=== PATIENT | female | born 1995 | race Hispanic/Latino ===

== ENCOUNTER 2021-06-18 09:38 | Emergency (ER) | payer OTHER ==
[~2021-06-18] VITALS: Ht 162.6 cm; Wt 159.1 kg
[2021-06-18] MEDS ORDERED: NEXP1IMP SC (10:00)
--- NOTE | 2021-06-18 10:18 | REP ---
INDICATION: CHEST PAIN. COMPARISON: None. TECHNIQUE: Single portable AP view of the chest was performed. FINDINGS: There is no acute infiltrate or pulmonary edema. Lungs are clear. The heart is not significantly enlarged. The mediastinal silhouette is unremarkable. The visualized osseous structures are intact. IMPRESSION: No acute pulmonary disease. <Electronically signed by Ricardo Quick > 06/18/21 [id number]
[2021-06-18 10:39] LABS: BASO # 0.1 10^3/uL (0.0-0.2); BASO % 0.4 % (0.0-1.0); EOS # 0.1 10^3/uL (0.0-0.5); EOS % 0.7 % (0.0-3.0); HEMATOCRIT 38.3 % (36.0-47.0); HEMOGLOBIN 12.1 g/dl (12.0-15.5); LYMPH # 2.1 10^3/uL (1.5-5.0); LYMPH % 15.3 % (24.0-44.0); MEAN CORPUSCULAR HEMOGLOBIN 29.4 pg (27.0-33.0); MEAN CORPUSCULAR HGB CONC 31.6 g/dl (32.0-36.5); MEAN CORPUSCULAR VOLUME 93.2 fl (80.0-96.0); MONO # 0.5 10^3/uL (0.0-0.8); MONO % 3.3 % (2.0-8.0); NEUTROPHILS # 10.9 10^3/uL (1.5-8.5); NEUTROPHILS % 79.7 % (36.0-66.0); PLATELET COUNT, AUTOMATED 272 10^3/uL (150-450); RED BLOOD COUNT 4.11 10^6/uL (4.00-5.40); WHITE BLOOD COUNT 13.7 10^3/uL (4.0-10.0)
[2021-06-18 11:05] LABS: HCG, SERUM QUALITATIVE NEGATIVE (NEGATIVE)
[2021-06-18 11:13] LABS: BLOOD UREA NITROGEN 9 MG/DL (7-18); CALCIUM LEVEL 8.7 MG/DL (8.5-10.1); CARBON DIOXIDE LEVEL 26 MEQ/L (21-32); CHLORIDE LEVEL 109 MEQ/L (98-107); CPK CREATINE PHOSPHOKINASE 85 U/L (26-192); CREATININE FOR GFR 0.66 MG/DL (0.55-1.30); GLOMERULAR FILTRATION RATE > 60.0 (>60); GLUCOSE, FASTING 161 MG/DL (70-100); MB/CK RELATIVE INDEX 1.18 (< OR =4); POTASSIUM SERUM 4.3 MEQ/L (3.5-5.1); SODIUM LEVEL 141 MEQ/L (136-145); TROPONIN I < 0.02 NG/ML (< 0.10)
[2021-06-18] MEDS ORDERED: ISOVUE-370 76% 100ML VIAL As Ordered ONE (11:22)
--- NOTE | 2021-06-18 11:40 | REP ---
INDICATION: r/o PE COMPARISON: None. TECHNIQUE: Axial contrast enhanced images from the thoracic inlet to the upper abdomen using pulmonary embolus technique with multiplanar re-formations. 100 ml Isovue 370 intravenous contrast material administered without complication. This CT examination was performed using the following dose reduction techniques: Automated exposure control, adjustment of mA and/or kv according to the patient's size, and use of iterative reconstruction technique. FINDINGS: Evaluation is limited due to technical factors, respiratory motion and body habitus. No obvious pulmonary embolus identified within the main and 1st order pulmonary arteries. Further evaluation for more distal emboli is nondiagnostic. Thoracic aorta is normal and without aneurysm or dissection. Heart and pericardium appear normal. The bilateral lung gtz are well aerated and clear without consolidation pleural effusion or pneumothorax. Tracheobronchial tree is patent. No obvious nodule or mass lesion is identified. No adenopathy noted. Surrounding musculoskeletal structures intact IMPRESSION: Limited examination. No obvious central pulmonary emboli identified. No acute mediastinal or pleuroparenchymal process appreciated. <Electronically signed by Cesario Pastrana > 06/18/21 [id number]
[2021-06-18] MEDS ORDERED: METOPROLOL TART 25 MG TABLET PO ONE (11:50)
[2021-06-18 12:13] VITALS: BP 141/67
[2021-06-18 14:12] LABS: CK-MB VALUE MASS < 1.0 NG/ML (<3.6); CPK CREATINE PHOSPHOKINASE 84 U/L (26-192); MB/CK RELATIVE INDEX 1.19 (< OR =4); TROPONIN I < 0.02 NG/ML (< 0.10)
[2021-06-18] MEDS ORDERED: VALS1TAB66 PO (14:34)
[2021-06-18 14:55] VITALS: BP 141/67
--- NOTE | 2021-06-19 07:28 | ECGEPIP ---
[facility] - ED Test Date: 2021-06-18 Pat Name: DARIO PALMER Department: Room: - Gender: Female Cytotechnologist/Histotechnologist: ANNIA : 1995 Requested By: Bk Madden Order Number: [id number] Reading MD: Bk Gordon Measurements Intervals [place] Rate: 134 P: 51 NH: 132 QRS: 30 QRSD: 76 T: 29 QT: 306 QTc: 456 Interpretive Statements Sinus tachycardia NO PRIORS FOR COMPARISON Electronically Signed on 06-19-2021 7:28:40 EDT by Bk Gordon
== END 2021-06-18 15:13 | disposition home or self-care (01) ==
LOC: M ED 09:38 → EDBD 09:38 → M ED 15:13
DX: I10 Essential (primary) hypertension (principal); R07.89 Other chest pain; R00.0 Tachycardia, unspecified; E66.9 Obesity, unspecified
CPT/HCPCS: 36415; 71045; 71275; 80048; 82550; 82553; 84443; 84484; 84703; 85025; 93005; 93041; 94760; 99285; Q9967

== ENCOUNTER 2021-08-12 21:26 | Emergency (ER) | payer OTHER ==
[~2021-08-12] VITALS: Ht 162.6 cm; Wt 161.4 kg
[~2021-08-12 21:26] MED LIST: NEXP1IMP SC; VALS1TAB66 PO
[2021-08-12] MEDS ORDERED: CHLO25TA PO (21:34)
--- OUTSIDE RECORDS SUMMARY | 2021-08-12 21:36 | CCD ---
Author Author [facility] Organization [facility] Address Unknown Phone Unavailable Care Team Providers Care Logistics Operations Manager Name Role Phone Elsa SOTO Unavailable Unavailable [place], Rasheed EDGAR Unavailable Unavailable Edgar Lovelace Unavailable [phone] [place] Edgar Unavailable [phone] [place] Edgar Unavailable [phone] MIR, Rasheed SIENA Unavailable Unavailable EMMA, V JONO Unavailable Unavailable EMMA, V JONO Unavailable Unavailable EMMA, V JONO Unavailable Unavailable EMMA, V JONO Unavailable Unavailable EMMA, V JONO Unavailable Unavailable EMMA, V JONO Unavailable Unavailable EMMA, V JONO Unavailable Unavailable EMMA, V JONO Unavailable Unavailable EMMA, V JONO Unavailable Unavailable EMMA, V JONO Unavailable Unavailable EMMA, V JONO Unavailable Unavailable EMMA, V JONO Unavailable Unavailable EMMA, V JONO Unavailable Unavailable EMMA, V JONO Unavailable Unavailable EMMA, V JONO Unavailable Unavailable EMMA, V JONO Unavailable Unavailable EMMA, V JONO Unavailable Unavailable EMMA, V JONO Unavailable Unavailable EMMA, V JONO Unavailable Unavailable EMMA, V JONO Unavailable Unavailable EMMA, V JONO Unavailable Unavailable EMMA, V JONO Unavailable Unavailable EMMA, V JONO Unavailable Unavailable EMMA, V JONO Unavailable Unavailable EMMA, V JONO Unavailable Unavailable EMMA, V JONO Unavailable Unavailable EMMA, V JONO Unavailable Unavailable EMMA, V JONO Unavailable Unavailable EMMA, V JONO Unavailable Unavailable EMMA, V JONO Unavailable Unavailable Rabach, A Siena Unavailable Rabach, A Siena Unavailable Rabach, A Siena Unavailable Rabach, A Siena Unavailable Rabach, A Siena Unavailable Rabach, A Siena Unavailable Rabach, A Siena Unavailable Rabach, A Siena Unavailable Rabach, A Siena Unavailable Rabach, A Siena Unavailable Rabach, A Siena Unavailable Rabach, A Siena Unavailable Rabach, A Siena Unavailable Dc, M Christopher PA-C Unavailable Unavailable Dc, M Christopher PA-C Unavailable Unavailable Dc, M Christopher PA-C Unavailable Unavailable Dc, M Christopher PA-C Unavailable Unavailable Dc, M Christopher PA-C Unavailable Unavailable Dc, M Christopher PA-C Unavailable Unavailable Dc, M Christopher PA-C Unavailable Unavailable Dc, M Christopher PA-C Unavailable Unavailable Dc, M Christopher PA-C Unavailable Unavailable Dc, M Christopher PA-C Unavailable Unavailable Dc, M Christopher PA-C Unavailable Unavailable Dc, M Christopher PA-C Unavailable Unavailable Dc, M Christopher PA-C Unavailable Unavailable Dc, M Christopher PA-C Unavailable Unavailable Dc, M Christopher PA-C Unavailable Unavailable Dc, M Christopher PA-C Unavailable Unavailable Dc, M Christopher PA-C Unavailable Unavailable Dc, M Christopher PA-C Unavailable Unavailable Dc, M Christopher PA-C Unavailable Unavailable Dc, M Christopher PA-C Unavailable Unavailable Dc, M Christopher PA-C Unavailable Unavailable Dc, M Christopher PA-C Unavailable Unavailable Dc, M Christopher PA-C Unavailable Unavailable Dc, M Christopher PA-C Unavailable Unavailable Dc, M Christopher PA-C Unavailable Unavailable Dc, M Christopher PA-C Unavailable Unavailable Re-disclosure Warning The records that you are about to access may contain information from federally-assisted alcohol or drug abuse programs. If such information is present, then the following federally mandated warning applies: This information has been disclosed to you from records protected by federal confidentiality rules (42 CFR part 2). The federal rules prohibit you from making any further disclosure of this information unless further disclosure is expressly permitted by the written consent of the person to whom it pertains or as otherwise permitted by 42 CFR part 2. A general authorization for the release of medical or other information is NOT sufficient for this purpose. The Federal rules restrict any use of the information to criminally investigate or prosecute any alcohol or drug abuse patient.The records that you are about to access may contain highly sensitive health information, the redisclosure of which is protected by Article 27-F of the [facility] Public Health law. If you continue you may have access to information: Regarding HIV / AIDS; Provided by facilities licensed or operated by the [facility] Office of Mental Health; or Provided by the [facility] Office for People With Developmental Disabilities. If such information is present, then the following [facility] mandated warning applies: This information has been disclosed to you from confidential records which are protected by state law. State law prohibits you from making any further disclosure of this information without the specific written consent of the person to whom it pertains, or as otherwise permitted by law. Any unauthorized further disclosure in violation of state law may result in a fine or longterm sentence or both. A general authorization for the release of medical or other information is NOT sufficient authorization for further disc losure. Encounters Encounter Providers Location Date Indications Data Source(s ) Outpatient Attender: Edgar Scanlonender: EDGAR LOVELACE 09/01/2021 12:00:[address] [facility] Outpatient Attender: JONO CARTER 09/01/2021 12:00:00 AM [facility] Outpatient 09/01/2021 12:00:[address] [facility] Outpatient Attender: Constantin Dc PA-C 08/12/2021 06:06:55 PM EST - 08/12/2021 09:17:32 PM EST [facility] Outpatient Attender: Edgar Jones brandy: EDGAR Paul: KRYSTINA SOTO [id number] 07/17/2021 12:00:00 AM [facility] Outpatient Attender: Siena Richardender: SIENA HESTER 6 [id number] 07/17/2021 12:00:[address] [facility] Outpatient Attender: Siena HesterAttender: SIENA HESTER 06/17/2021 12:00:00 AM [facility] Outpatient Attender: EDGAR LOVELACEAttender: Edgar Lovelace 06/17/2021 12:00:00 AM [facility] Outpatient Attender: KRYSTINA SOTO [id number] 06/13/2021 12:00:00 AM [facility] Outpatient 06/10/2021 12:00:00 AM [facility] Outpatient 05/23/2021 12:00:00 AM [facility] Outpatient 05/20/2021 12:00:00 AM [facility] Outpatient 03/11/2021 12:00:00 AM [facility] Medications No Information Insurance Providers Payer name Policy type / Coverage type Policy ID Covered alliance party ID Covered alliance party's relationship to christina Policy Christina Plan Information U [id number] Spouse [id number] / [id number] [place] [id number] [facility] [id number] [facility] [id number] Problems, Conditions, and Diagnoses No Information Surgeries/Procedures No Information Results ID Date Data Source [id number] 07/18/2021 09:13:50 AM [facility] Name Value Range Interpretation Code Description Data Patsy rce(s) Supporting Document(s) Progress Note [facility] WYPVLf6oXsRAAxDc48/XIIqdWNSbh0VoKXpwEHb0RNyuIRJsS9OfKVG0iI9eAZD7FYpEZtHtVwMdCPUj [facility] [file] ICAgICAgICAgICAgICAgICAgICAgICAgICAgICAgIC IzTHNzEMFdLISfJYWtYEEbINXsSUHfVABvBUNmCTIaYZLhOXPuLIMbITQjQL4VGDEtTOOuAYDmTWTdRQ AgICAgICAgICAgICAgICAgICAgICAgICAgICAgICAgICAgICAgICAgICAgICAgICAgICAgICAgICAgIC RxSQBfWOYfTYHsSXSbTQIvZTKeFUNqMYXnTZ0WVHFe ICAgICAgICAgICAgICAgICAgICAgICAgICAgICAgICAgICAgICAgICAgICAgICAgICAgICAgICAgICAg TPJuQQDnBNJxKYKyPUXcSYLgIQHcWPUyDILzEJVlOREdKESmDW8BAWFmZNGaYPSoVLYnVLBvIHZwDFXe ICAgICAgICAgICAgICAgICAgICAgICAgICAgICAgIC PhORHyXHYlADXfSTMqYNKwSMUiNCEkPVXqLFVkREHtAHQtDDMbKKIfFNKcNQCbHC5JIGDaHZDxRPUkZJ AgICAgICAgICAgICAgICAgICAgICAgICAgICAgICAgICAgICAgICAgICAgICAgICAgICAgICAgICAgIC SdRLRePWUrWAPbUSSeWEKcLAJeNKPvHLAyHEHzPA7G ICAgICAgICAgICAgICAgICAgICAgICAgICAgICAgICAgICAgICAgICAgICAgICAgICAgICAgICAgICAg UVWnEZDqYNNwLUFyMAUfQZWoYSSrPTMaGXUhMLYzGYQoSEOcYTHgAJ2ICSJmLPMsARBqDPAcANZsBAQb ICAgICAgICAgICAgICAgICAgICAgICAgICAgICAgIC NwHTYvNENsECMqJOBlZMMhNPJgBWQxHYNoQXBgKSIiZQLdXPZjCTFxQDYmSUOfCOXgZQ3GVVNpMVIrMF AgICAgICAgICAgICAgICAgICAgICAgICAgICAgICAgICAgICAgICAgICAgICAgICAgICAgICAgICAgIC AgICAgICAgICAgICAgICAgICAgICAgICAgICAgICAg QI8ZBTAsEXLnFNZqDYVvWMPsRSCgHPKbPLReNYDmHWEmRMQjFDKjRGHvPXTgUBCfUTFsJCBgEHRaGBQk NKNlVYQjCFPwQHYeQLAdODXiHEClNNYuYOFkACNwNJToQPQkFWBnIUSpHW0XGIOwWOTkXNYyTGToBOIl ICAgICAgICAgICAgICAgICAgICAgICAgICAgICAgIC DjZKMtLLAmOQHsFPXaYOXmDDHcNQEoCLGgMHMdMJDjSGWqLHHcIOGsJICuNNXcWLMwHVDaMK9WHT29eX Rjq0D0VGUrNE6jivu/Ju6ANEiruxFjhCFpDQ5DHuAvBV3ldm8ZTfOlFO7vkv7NJJpUTtTrL3H3mHQpEX UxNHSWDxXpF60oVQwjZd14LNleDVCzGkNmRDz9Ky9M SwQvE5utSKOaFtI3BGPxDkC1GUQeYfN3OWWbZpSeFNLlCRSgBE4OMREpK074nnGrWF7GDr0LIfYwJR0v sq6USjktZWEtRxiTXwd5AJgyGN8BuIJibUKjPHRiXEZDVvUqI6hde6ZaXlnwGMICSEjuII8Ox6BjsAEo DQo+Dw1JOG7ve9EkUJsmTIYeQR4tpj7SVTwWIxPlY9 KllMciFXNxl7mxUUKlQW9ugYTxJBS6AMYhrlQhUZYEBPhusrJsqmqdJyRuZDSAVfCjyRLzOU5tVD5qFA RyDDAzWpUgEMUXVK5VJXYeHFVenMOfNNDoSWMAFW9QGXpfAYP2YYMazeGbbRZdZMmcJO0ORUXfoiSzUh ggMCBSDQo+Oe3TPX2uk5NxICriGGDnYH6bha2GPAxB GlVxB2M2bSIoW9E0RAdqJs5CCBTyKNHbQpJsYNWBDBizBR1QCK9tnrP7MV5SgWTvFDYoRSUjcJNtHAv3 A56hjPKvONsyLA4LQWZ+Susan+Pd3YZDYbZJAcOBEoMcKjKBZFTtHuW7UwT9DXu4RtF7TtZI48bSgyxgDg UBtgGM3WSH4oCBSwVKAFAM0YgAWjgW8wvlVwJMKiJB NWYxCkC19hgJZsABXrAWF6FGWgBx4IDIXsD3LypuLidZmwecTfCLCuFUEPVO6PBRplxhWudLTfqZsvBP 24oQaqLM1WJx0MSlKeFY5wmq8NpTFqVo3MKLPsBA8DBCMkMAFsQGRyYFL4AYTfGeQfFQblHCBuEUNvNR K6LPRkZBIeJI2XIvNySBYkJrs2CqTpTZEmYCXlhf8Z RXSdMVUnOXP1NEMrCVFjDRUpGNwcYLXiKTEoAWI1WOZaUMKfVF8EXoPwJYRtRGJ3FeubGIBqDTGsro2I KNWhIFKlLPU5JpPlBZVgUQZzOJcxFZUdUTX8GPktKXMsBDVlMY7IGrMcLIAdQFzsXQFeMPHxEXZooi9Z ZVQqHSYgZFYmCEKfKKHyICPcYVtdIXInGUWdAOD4AO SsSYMsBL6WHyYhSLPnGWS0JIQeLFZmVHMrsx9DIONjXBHqMrG7VkWdQQBaMJBnQXiuQRKpFIA1HOC8PQ XfNEZiKD9MKfMrQJTrHFWjPHLkLBFrIFYuvb6CACHeODPaFKN7VfGlZOWsJWHcGDfzPVToDXQ7MxA0IV GaEUAoTT9CSaWzBRXuPQD9UVbhDHVvEUWbuw4YPLSr PQSjGNojOSDvSBXoGRTeASiaOCUeWFW9NCP3JUDzORStPR9IJcNkQUQmWiu0VLMrCWLvQOTxsc3FGTEg GSXmFqG0ELAtQTHaVZHqCPheCVUpSNF4NVJ3EJBcPZXvDS7WJpJzRCKgPswjDRMrMPKiRNHacg6HCXKu VJJkRJJxDwDcAUHvPWUwQKauJJMeDFW3JhPaSYIoET OjPS2RCsWvARYnFnvoUHlgNVHsJJYmda1IAGGdZAMrAFtpFPLdOTHwJAWhMMyyMHPrCKWdSvghERMnRS KyEJ0EYxGxBHEpUiHeLCVjLGJwIYIsdq1BNIWaUJZpFNC8YMFnCCWfEQIjJOh0qkKlrKPuEFj9SK1LP4 TcxrNnSqDRBa3Yn540LAXbNLVcQw3KK1ckQv1lDOWe KPKQNr1IRUn2Lvy8Y3U5KKLmXQpaPQr1EQU8YhE3DwO0BWC5ADMbPVK+FTygBRNzUUsoDGO8NSMfKKQ2 DGCqPbLhAkFzDxI9G3GwJf8tGWIYWz3+QIbeyQPooRqzPNKZTjPjSbNeDPfyTCWUZl4U ID Date Data Source [id number] 07/17/2021 03:56:47 PM [facility] Name Value Range Interpretation Code Description Data Patsy rce(s) Supporting Document(s) Progress Note [facility] PZQIDj2iEmYVSfBn61/RCTcqWNLro0HoZKzyOBd6IEdiAYShZ0JpLBU8aG0oUTO3QIrZPtSfXlXfGJRg lbm [file] JeylY76iKdzhvnUiyp0gRS3MAeyrF8UCqsHoqPYn+GPzd3U8QTtylltdKYAgn8fqbdh9otQEhkWA+athletics teacher [file] ID Date Data Source [id number] 06/13/2021 04:14:39 PM EDT [facility] Name Value Range Interpretation Code Description Data Patsy rce(s) Supporting Document(s) Progress Note [facility] HLFZSl1gWbRIYcUt24/JKJsnSWFnl4BfMKmrOMi1ZDthECWmQ3WqBKO1lK4cYXV2CLaHHwNaUbFbODV3 lbm [file] WjFN6ICDm= Procedure Social History No Information
[2021-08-13] MEDS ORDERED: NS 1,000 ML IV ONE (03:20)
[2021-08-13] MEDS ORDERED: KETOROLAC 30 MG/ML 1ML VIAL IV ONE (03:20)
[2021-08-13 03:59] LABS: BASO % 0.2 % (0.0-1.0); EOS # 0.1 10^3/uL (0.0-0.5); EOS % 0.5 % (0.0-3.0); HEMATOCRIT 43.6 % (36.0-47.0); HEMOGLOBIN 13.8 g/dl (12.0-15.5); LYMPH # 2.9 10^3/uL (1.5-5.0); LYMPH % 17.5 % (24.0-44.0); MEAN CORPUSCULAR HEMOGLOBIN 29.3 pg (27.0-33.0); MEAN CORPUSCULAR HGB CONC 31.7 g/dl (32.0-36.5); MEAN CORPUSCULAR VOLUME 92.6 fl (80.0-96.0); MONO # 0.5 10^3/uL (0.0-0.8); MONO % 3.3 % (2.0-8.0); NEUTROPHILS # 12.9 10^3/uL (1.5-8.5); PLATELET COUNT, AUTOMATED 322 10^3/uL (150-450); RED BLOOD COUNT 4.71 10^6/uL (4.00-5.40); WHITE BLOOD COUNT 16.6 10^3/uL (4.0-10.0)
[2021-08-13 04:24] LABS: ALBUMIN 3.5 GM/DL (3.2-5.2); ALT/SGPT 37 U/L (12-78); BILIRUBIN,DIRECT < 0.1 MG/DL (0.0-0.2); BILIRUBIN,TOTAL 0.4 MG/DL (0.2-1.0); LIPASE 42 U/L (73-393); TOTAL PROTEIN 8.5 GM/DL (6.4-8.2)
[2021-08-13] MEDS ORDERED: ISOVUE-370 76% 100ML VIAL As Ordered ONE (04:39)
--- OUTSIDE RECORDS SUMMARY | 2021-08-13 05:01 | CCD ---
Author Author [facility] Organization [facility] Address Unknown Phone Unavailable Care Team Providers Care Cable Television Program Director Name Role Phone Elsa SOTO Unavailable Unavailable [place], Rasheed EDGAR Unavailable Unavailable Edgar Lovelace Unavailable [phone] [place] Edgar Unavailable [phone] [place] Edgar Unavailable [phone] MIR, Rasheed SIENA Unavailable Unavailable EMMA, V [...] is protected by Article 27-F of the [facility] Public Health law. If you continue you may have access to information: Regarding HIV / AIDS; Provided by facilities licensed or operated by the [facility] Office of Mental Health; or Provided by the [facility] Office for People With Developmental Disabilities. If such information is present, then the following [facility] mandated warning applies: This information [...] law may result in a fine or [place] [facility] [place] sentence or both. A general authorization for the release of medical or other information is NOT sufficient authorization for further disc losure. Encounters Encounter Providers Location Date Indications Data Source(s ) Outpatient Attender: Edgar Scanlonender: EDGAR LOVELACE 09/01/2021 12:00:00 AM [facility] Outpatient Attender: JONO CARTER 09/01/2021 12:00:00 AM [facility] Outpatient 09/01/2021 12:00:00 AM [facility] Outpatient Attender: Constantin Dc PA-C 08/12/2021 06:06:55 PM EST - 08/12/2021 09:17:32 PM EST [facility] Outpatient Attender: Edgar Jones brandy: EDGAR Paul: KRYSTINA SOTO [id number] 07/17/2021 12:00:00 AM [facility] Outpatient Attender: Siena Richardender: SIENA HESTER 6 [id number] 07/17/2021 12:00:00 AM [facility] Outpatient Attender: Siena HesterAttender: SIENA HESTER 06/17/2021 12:00:00 AM [facility] Outpatient Attender: EDGAR LOVELACEAttender: Edgar Lovelace 06/17/2021 12:00:00 AM [facility] Outpatient Attender: KRYSTINA SOTO [id number] 06/13/2021 12:00:00 AM [facility] Outpatient 06/10/2021 12:00:00 AM [facility] Outpatient 05/23/2021 12:00:00 AM [facility] Outpatient 05/20/2021 12:00:00 AM [facility] Outpatient 03/11/2021 12:00:00 AM [facility] Medications No Information Insurance Providers Payer name Policy type / Coverage type Policy ID Covered libertarian ID Covered libertarian's relationship to christina Policy Christina Plan Information U [id number] Spouse [id number] / [id number] [place] [address] [id number] [facility] [id number] [facility] [id number] Problems, Conditions, and Diagnoses No Information Surgeries/Procedures No Information Results ID Date Data Source [id number] 07/18/2021 09:13:50 AM [facility] Name Value Range Interpretation Code Description Data Patsy rce(s) Supporting Document(s) Progress Note [facility] TYONKt1hXnQLDkNt90/KEJgcBWKfq1RdHUjuPFb0AHduXFMwD8XrNCC0qW9sASR4KBkXTtRdYxAtGVBp [facility] [file] ICAgICAgICAgICAgICAgICAgICAgICAgICAgICAgIC UoIGVpZLOoVCUuRVJaQMSvMLFkPSDsUGDzNZKfRLCqOWEbASWzDUSjIWKfFM8CWABwAKGcKUIfROBwHC AgICAgICAgICAgICAgICAgICAgICAgICAgICAgICAgICAgICAgICAgICAgICAgICAgICAgICAgICAgIC QoMAOiQTBxPISrKKRnKVUyCSIrFZMxBSFyQF4EIIFr ICAgICAgICAgICAgICAgICAgICAgICAgICAgICAgICAgICAgICAgICAgICAgICAgICAgICAgICAgICAg YUYuRNQrSYHrWYSvBANaTECcBAJvGERcXZWkWRXrRRSlURHiNW7CNMCgZTUbBFDhEGZtRLYsUERlABVp ICAgICAgICAgICAgICAgICAgICAgICAgICAgICAgIC ToNOIyIECzJARkSTWcVJIaUMFeFVHnMQQyIYAaNGQyVQSfWPSdCWMxEYMwBCZnXR3KVLKvNVYoNIBgGO AgICAgICAgICAgICAgICAgICAgICAgICAgICAgICAgICAgICAgICAgICAgICAgICAgICAgICAgICAgIC GtXGIpOMGtVAEhMZWlXKVkJNIhLHSgLSJhLFAqUB9P ICAgICAgICAgICAgICAgICAgICAgICAgICAgICAgICAgICAgICAgICAgICAgICAgICAgICAgICAgICAg ARDoDHImMWXhEGTsXGVfNRLpWPOqXGTmVFHcKKFrMXFkHTIrVDXiEZ4BRRUwGVGlALAzLOUgBLAhAKLn ICAgICAgICAgICAgICAgICAgICAgICAgICAgICAgIC JeCIBzEXSeHDCwVELsFWYgOSGjZLFrKMCwGXZzZQYrTZSpWGWbRTPkGBFqHHCvGQYuQQ7ACPDlYSKaFS AgICAgICAgICAgICAgICAgICAgICAgICAgICAgICAgICAgICAgICAgICAgICAgICAgICAgICAgICAgIC AgICAgICAgICAgICAgICAgICAgICAgICAgICAgICAg YR1MTKNvPCYtYXIcRQKgMOToOYNaCGXaJHCkLVCpJIKaYLXiRLEiYLKaMDUkCALcJZMdHXAiMUNuTOYg CXPuJIZgBKIgLHTlEGDuRMGcFQOmBBSwVNQwMUOhKGPaOALxJVAbEBRqTT4PYPSwKCHnOHNdXHXqDGFi ICAgICAgICAgICAgICAgICAgICAgICAgICAgICAgIC LsFJHjSGYbPPQgWMFmFMLqTENcBOSyEGDfILXfXSTeKYEzLMTqFOPwZHJiYMDwYFJyHCEqFA4CXE27sK Tzl6X0VOQjVO4ifez/Ek8KUYbvhgFteIKxBH0CUwDjVP9mzi7TMoTnFQ3itv2HNSdTIqYzQ0G6fHOvYX YuCKNXEsYzI72eCHrdWo65OBipGXZwUbTdTAp0Xr7O ByQnP9iuINQgCeK5TBUcXvN4CGDiJzV2GQMiBiFvTCWzRLNcWQ5LWCTcN136heUdOS0WXw4QEbYjVW4x jt6YZlpiNIMjPjaXTep7YZfbAZ4SnTYhtGCkBRSpONHFNdJhC0xqk0JeWvdtDVCLFBqbBS2Ba9GuyKTh DQo+Ev2VFC6ir9BnMCioJKVhEX6sef2VYHoICiRbD1 OuvJkmXXZfl7swASKhGG4yvGMiOTW4XCEbmoGaLWGLGYwtgkZqkdtqLuBwUIQLIfJvlUBqBQ1lFJ7nCT HpUVZyHhIbEBLTBJ7RAIEwJVMbtVWqWBScLLUEPO9OVXhdPEI3ZIAptuTayRVrHXoyCF7HTLVkplCeBr ggMCBSDQo+Qi8ZSI4zx7NnJOliNDVnYA8nvq5HRCtY DySuK5H9bRReZ9Q6NXxeRc7GZIItJHIhEzYaWVRKFIvhLZ5XID1cxhP6ET4EkHVnZAQtGVOuzJYtRJb3 K89tbRKqHXfdEK9KGSF+Susan+Jq5MZRVqSBFmNEIxYyCaPLPNEhKqA2AvF8DQm4CdF9JuLM90eCasniIa NNhjAB0AUS1kFDCtCLSQGM2HmDJjkC3lwzAtCPYoHE QMTkKlQ10glHPjQAWkDXT3UZYgBz9SRXSoQ7EdvxFdsRkaiwUjXPBjFWTNRN5DQBxyodDdgVXpwXciCH 62wNlaLF5YWh1UCuVfUW3ngb7EhHAfGn7UUOYvAD6HWZFePTYlIFShMVD2FLJgPsRhJTncQRRuDQRgIR P8YXMzLMZsTM4COgWiQEYfRiy8FiMaMBWfOTWvhd3F VMXtTETjKTM0MOFbRXByBLMhBKjoJYMiOUToOPP8PFNkNQBaFK3XZoTrTXIgIQQ7WciuFFJjIHDasm7O JPUzGMRhHQU5UcMqDUUjSUKcKHupXPLqPPS4TNtbFFFzEUMnJI7BRhXjVDElKQsfPHUyZYZyEVJcjn3D WFJaGIAaSXPqXDZyYMPgRDBnJHeuIIZtCIFlPSC6TL FiHGBfUZ5ONlXhWOMgENV7PNNcRRCaPKSvhl3KFVLmKPXbDqJ9SvDoQECkTDIaLQkkOMGhDUM6JQH4GG UaFOLgYV1VVjCnWMFmQKQySMNxAZOrXGBnht4QEKFcOOMqQUQ7XmKcIWSnRNNnAZsiQMXcULY3AwI0IC AhGWRcBF6FZaGyAYDoBZW5PApzCNCoDRWxav7VRXFq UAKwJQqaTRUjHONzZUVkBUklJSDwZNM2MUO3UMSyPCCaFO0XAeHgQHVjGwi7NBUmDHDaECNjyb9WTCLe DRZoMoW4LOTwYQVsKOKoXFpmBVPeHWK5FNJ6QQTyQZBxLV4OKhNdHLOaCfdgCSHmMWUpBWYfnp2JYVVa SYKaMFGuDvIeQVVdKXEiIOgyLCKfXXM6XvOmZISmFP NlSX6MRyKeYWQmYtucSEilWMApLIWuyr6ASWEkMWHnVLuqQKFcLSInFKXiYUofQTQwUFHqIphcMHVwRO KyAX0TQeKnQMIwPxSpPWDxGUEvCQNrhl9IFYLjHDKpKGQ1DGQbSWAfETTiZYe7oyMnhMOkCFf9CT1ZY3 PeorFqWtJGXi7Ze743SHSsUMZfCl7JX9fwAc0oDAAu OLJKJj4NAKc5Kyr0Q4V9CCPzTQnwVIa1WFF7JbA7MqC4KIK8CYPqQYB+YDmwVXOaBXgvCYU7OLKoOAA6 EBKbZmCvPrJuZuC9R4WnEq6qHFHQEo3+GNcsiBApwYraBSOZWsRwDrUrYXuuRDQFIp0X ID Date Data Source [id number] 07/17/2021 03:56:47 PM [facility] Name Value Range Interpretation Code Description Data Patsy rce(s) Supporting Document(s) Progress Note [facility] FMZAKy4uToGTEfLq25/GPUlcVXKwk7FjWZifPLg6IYldEJOpV0EbJTJ4tL8tOYP6BZhGIuQwNfOxCZLs lbm [file] 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
--- NOTE | 2021-08-13 06:35 | REPVR ---
PROCEDURE INFORMATION: Exam: CT Abdomen And Pelvis With Contrast Exam date and time: 08/13/2021 4:33 AM Age: 25 years old Clinical indication: Other: Urinary; Additional info: Left flank, suprapubic pain, dysuria, negative ua TECHNIQUE: Imaging protocol: Computed tomography of the abdomen and pelvis with contrast. Radiation optimization: All CT scans at this facility use at least one of these dose optimization techniques: automated exposure control; mA and/or kV adjustment per patient size (includes targeted exams where dose is matched to clinical indication); or iterative reconstruction. Contrast material: ISO; Contrast volume: 100 ml; Contrast route: INTRAVENOUS (IV); COMPARISON: CT ANGIO CHEST 06/18/2021 11:20 AM FINDINGS: Liver: Mild hepatomegaly and steatosis. Gallbladder and bile ducts: Normal. No calcified stones. No ductal dilation. Pancreas: Normal. No ductal dilation. Spleen: Normal. No splenomegaly. Adrenal glands: Normal. No mass. Kidneys and ureters: Wedge-shaped perfusion defect involving left kidney. Correlate clinically for evidence of acute pyelonephritis. Stomach and bowel: Mild nonspecific bowel wall thickening involving small bowel loops. Favor under distension. Mild enteritis cannot be completely excluded. Appendix: No evidence of appendicitis. Intraperitoneal space: Unremarkable. No free air. No significant fluid collection. Vasculature: Unremarkable. No abdominal aortic aneurysm. Lymph nodes: Unremarkable. No enlarged lymph nodes. Urinary bladder: Unremarkable as visualized. Reproductive: Unremarkable as visualized. Bones/joints: Unremarkable. No acute fracture. Soft tissues: Unremarkable. IMPRESSION: Wedge-shaped perfusion defect involving left kidney. Correlate clinically for evidence of acute pyelonephritis. Mild nonspecific bowel wall thickening involving small bowel loops. Favor under distension. Mild enteritis cannot be completely excluded. No bowel obstruction. Normal appendix. No hydronephrosis or nephrolithiasis bilaterally. Electronically signed by: Fernandez Cano On 08/13/2021 06:34:37 AM
[2021-08-13 06:45] VITALS: BP 114/69
[2021-08-13] MEDS ORDERED: PYRI1TAB5 PO (06:50)
[2021-08-13] MEDS ORDERED: CIPR-249 PO (06:50)
[2021-08-13] MEDS ORDERED: PHENAZOPYRIDINE 100 MG TAB PO ONE (06:50)
[2021-08-13] MEDS ORDERED: CIPROFLOXACIN 500MG TABLET PO ONE (06:50)
--- NOTE | 2021-08-13 14:26 | ECGEPIP ---
[facility] - ED Test Date: 2021-08-13 Pat Name: DARIO SOSA Department: Room: - Gender: Female Asphalt Worker: Dmitri CHIU : 1995 Requested By: YOMI Gomez Order Number: [id number] Reading MD: Gilmar Michelle Measurements Intervals [place] Rate: 132 P: 53 NV: 134 QRS: 19 QRSD: 74 T: 35 QT: 310 QTc: 459 Interpretive Statements Sinus tachycardia Similar to tracing done 06-18-21 Electronically Signed on 08-13-2021 14:25:59 EST by Gilmar Michelle
== END 2021-08-13 07:07 | disposition home or self-care (01) ==
LOC: M ED 21:26
DX: N10 Acute pyelonephritis (principal); R00.0 Tachycardia, unspecified; E66.01 Morbid (severe) obesity due to excess calories; I10 Essential (primary) hypertension; Z79.3 Long term (current) use of hormonal contraceptives
CPT/HCPCS: 74177; 80047; 80076; 81001; 83605; 83690; 84702; 85025; 93005; 93041; 96361; 96374; 99284; J1885; Q9967

== ENCOUNTER 2021-09-01 15:17 | Emergency (ER) | payer OTHER ==
[~2021-09-01] VITALS: Ht 162.6 cm; Wt 161.4 kg
[~2021-09-01 15:17] MED LIST changes: +CHLO25TA PO; +CIPR-249 PO; +PYRI1TAB5 PO
[2021-09-01 16:18] LABS: HEMATOCRIT 39.2 % (36.0-47.0); HEMOGLOBIN 12.5 g/dl (12.0-15.5); MEAN CORPUSCULAR HEMOGLOBIN 29.1 pg (27.0-33.0); MEAN CORPUSCULAR HGB CONC 31.9 g/dl (32.0-36.5); MEAN CORPUSCULAR VOLUME 91.2 fl (80.0-96.0); PLATELET COUNT, AUTOMATED 293 10^3/uL (150-450); WHITE BLOOD COUNT 11.7 10^3/uL (4.0-10.0)
[2021-09-01 16:36] LABS: BLOOD UREA NITROGEN 13 MG/DL (7-18); CALCIUM LEVEL 9.2 MG/DL (8.5-10.1); CARBON DIOXIDE LEVEL 32 MEQ/L (21-32); CHLORIDE LEVEL 102 MEQ/L (98-107); CREATININE FOR GFR 0.61 MG/DL (0.55-1.30); GLOMERULAR FILTRATION RATE > 60.0 (>60); GLUCOSE, FASTING 136 MG/DL (70-100); POTASSIUM SERUM 3.1 MEQ/L (3.5-5.1); SODIUM LEVEL 139 MEQ/L (136-145)
[2021-09-01 16:40] LABS: CK-MB VALUE MASS < 1.0 NG/ML (<3.6); CPK CREATINE PHOSPHOKINASE 100 U/L (26-192)
[2021-09-01 18:26] LABS: HCG, SERUM QUALITATIVE NEGATIVE (NEGATIVE)
[2021-09-01] MEDS ORDERED: ISOVUE-370 76% 100ML VIAL As Ordered ONE (18:27)
[2021-09-01 19:31] LABS: AMPHETAMINES LEVEL URINE NEGATIVE (NEGATIVE); BARBITURATES URINE NEGATIVE (NEGATIVE); BENZODIAZEPINES URINE NEGATIVE (NEGATIVE); CANNABINOIDS URINE NEGATIVE (NEGATIVE); COCAINE METABOLITE URINE NEGATIVE (NEGATIVE); METHADONE URINE NEGATIVE (NEGATIVE); OPIATES URINE NEGATIVE (NEGATIVE); PHENCYCLIDINE URINE NEGATIVE (NEGATIVE)
[2021-09-01] MEDS ORDERED: amLODIPine 5 MG TAB PO ONE (20:45)
[2021-09-01] MEDS ORDERED: NORV5TAB PO (20:46)
[2021-09-01 21:04] VITALS: BP 140/79
[2021-09-01 21:07] VITALS: BP 142/89
== END 2021-09-01 21:21 | disposition home or self-care (01) ==
LOC: M ED 15:17
DX: I10 Essential (primary) hypertension (principal); R00.0 Tachycardia, unspecified; Z79.899 Other long term (current) drug therapy
CPT/HCPCS: 36415; 71275; 80048; 80307; 81001; 82550; 82553; 84484; 84703; 85027; 93005; 99284; Q9967

== ENCOUNTER → 2021-09-29 | Outpatient (CLI) | payer OTHER ==
[~2021-09-29] MED LIST changes: +NORV5TAB PO
== END ==
LOC: M SLEEP HO 13:16
PROVIDERS: ATTEND Internal Medicine Cardiovascular Disease
DX: G47.33 Obstructive sleep apnea (adult) (pediatric) (principal)

== ENCOUNTER → 2021-11-30 | Outpatient (CLI) | payer OTHER | LOC: M SLEEP 20:00 | PROVIDERS: ATTEND Nurse Practitioner Adult Health | DX: G47.33 Obstructive sleep apnea (adult) (pediatric) (principal) ==

== ENCOUNTER 2022-03-07 10:59 | Emergency (ER) | payer OTHER ==
[~2022-03-07] VITALS: Ht 162.6 cm; Wt 160.6 kg
[~2022-03-07 10:59] MED LIST changes: +ETON68IM SC; -NEXP1IMP SC
[2022-03-07 11:00] VITALS: BP 139/96
[2022-03-07] MEDS ORDERED: IRON27TA2 PO (11:25)
[2022-03-07] MEDS ORDERED: BACT800T5 PO (11:25)
[2022-03-07] MEDS ORDERED: CORE12.5 PO (11:25)
[2022-03-07] MEDS ORDERED: KETOROLAC 30 MG/ML 1ML VIAL IV ONE (12:35)
[2022-03-07] MEDS ORDERED: NS 1,000 ML IV SCH (12:35)
[2022-03-07 12:59] LABS: BASO % 0.3 % (0.0-1.0); EOS # 0.3 10^3/uL (0.0-0.5); EOS % 2.2 % (0.0-3.0); HEMATOCRIT 39.1 % (36.0-47.0); HEMOGLOBIN 12.4 g/dl (12.0-15.5); LYMPH # 2.8 10^3/uL (1.5-5.0); LYMPH % 22.4 % (24.0-44.0); MEAN CORPUSCULAR HGB CONC 31.7 g/dl (32.0-36.5); MEAN CORPUSCULAR VOLUME 91.6 fl (80.0-96.0); MONO # 0.5 10^3/uL (0.0-0.8); MONO % 3.7 % (2.0-8.0); PLATELET COUNT, AUTOMATED 312 10^3/uL (150-450); RED BLOOD COUNT 4.27 10^6/uL (4.00-5.40); WHITE BLOOD COUNT 12.6 10^3/uL (4.0-10.0)
[2022-03-07 13:23] LABS: ALBUMIN 3.6 GM/DL (3.2-5.2); BILIRUBIN,DIRECT 0.3 MG/DL (0.0-0.2); BILIRUBIN,TOTAL 0.4 MG/DL (0.2-1.0); TOTAL PROTEIN 8.1 GM/DL (6.4-8.2)
[2022-03-07 14:29] LABS: GC DNA AMPLIFICATION NEGATIVE (NEGATIVE)
[2022-03-07] MEDS ORDERED: ACET-897 PO (15:21)
== END 2022-03-07 15:40 | disposition home or self-care (01) ==
LOC: M ED 10:59
DX: R74.8 Abnormal levels of other serum enzymes (principal); R80.9 Proteinuria, unspecified; M54.9 Dorsalgia, unspecified; R10.9 Unspecified abdominal pain; I10 Essential (primary) hypertension; K52.9 Noninfective gastroenteritis and colitis, unspecified; Z79.3 Long term (current) use of hormonal contraceptives
CPT/HCPCS: 80047; 80076; 81001; 83690; 84702; 85025; 87086; 87661; 87810; 87850; 96361; 96374; 99283; J1885

== ENCOUNTER 2022-10-04 17:06 | Emergency (ER) | payer OTHER ==
[~2022-10-04] VITALS: Ht 162.6 cm; Wt 153.2 kg
[~2022-10-04 17:06] MED LIST changes: +ACET-897 PO; +BACT800T5 PO; +CORE12.5 PO; +IRON27TA2 PO
[2022-10-04 19:01] VITALS: BP 158/73
== END 2022-10-04 19:02 | disposition home or self-care (01) ==
LOC: M ED 17:06
DX: N93.9 Abnormal uterine and vaginal bleeding, unspecified (principal); N60.19 Diffuse cystic mastopathy of unspecified breast; I10 Essential (primary) hypertension; Z79.899 Other long term (current) drug therapy

== ENCOUNTER → 2022-11-12 | Outpatient (CLI) | payer OTHER | LOC: M WHC 10:26 | PROVIDERS: ATTEND Family Medicine | DX: N64.4 Mastodynia (principal) ==

== ENCOUNTER → 2022-11-27 | Outpatient (CLI) | payer OTHER | LOC: M PLAIMG 11:11 | PROVIDERS: ATTEND Student in an Organized Health Care Education/Training Program | DX: R30.0 Dysuria (principal) ==

== ENCOUNTER 2022-12-19 10:05 | Emergency (ER) | payer OTHER ==
[~2022-12-19] VITALS: Ht 162.6 cm; Wt 144.5 kg
[2022-12-19] MEDS ORDERED: TRAM50TA2 (10:25)
[2022-12-19] MEDS ORDERED: METH-1164 (10:25)
[2022-12-19] MEDS ORDERED: OMEP-173 (10:25)
[2022-12-19] MEDS ORDERED: CARV12.5 (10:25)
[2022-12-19] MEDS ORDERED: GABA-282 (10:25)
[2022-12-19] MEDS ORDERED: URSO300C3 (10:25)
[2022-12-19] MEDS ORDERED: NS 1,000 ML IV ONE (12:35)
[2022-12-19 13:31] LABS: BASO % 0.3 % (0.0-1.0); EOS # 0.3 10^3/uL (0.0-0.5); EOS % 2.7 % (0.0-3.0); HEMOGLOBIN 12.3 g/dl (12.0-15.5); LYMPH # 3.1 10^3/uL (1.5-5.0); LYMPH % 25.9 % (24.0-44.0); MEAN CORPUSCULAR HEMOGLOBIN 29.1 pg (27.0-33.0); MEAN CORPUSCULAR HGB CONC 31.5 g/dl (32.0-36.5); MEAN CORPUSCULAR VOLUME 92.2 fl (80.0-96.0); MONO # 0.6 10^3/uL (0.0-0.8); NEUTROPHILS # 7.9 10^3/uL (1.5-8.5); NEUTROPHILS % 65.8 % (36.0-66.0); PLATELET COUNT, AUTOMATED 323 10^3/uL (150-450); RED BLOOD COUNT 4.23 10^6/uL (4.00-5.40)
[2022-12-19 13:53] LABS: LIPASE 25 U/L (12-53)
[2022-12-19 13:55] LABS: ALBUMIN 3.9 G/DL (3.2-5.2); ALKALINE PHOSPHATASE 118 U/L (46-116); ALT/SGPT 55 U/L (7.0-40); AST/SGOT 22 U/L (<34); BILIRUBIN,DIRECT 0.2 MG/DL (<0.4); BILIRUBIN,TOTAL 0.6 MG/DL (0.3-1.2); TOTAL PROTEIN 8.1 G/DL (5.7-8.2)
[2022-12-19 14:21] LABS: HCG, SERUM QUALITATIVE NEGATIVE (NEGATIVE)
[2022-12-19 15:49] VITALS: BP 135/64
== END 2022-12-19 16:01 | disposition home or self-care (01) ==
LOC: M ED 10:05
DX: E86.0 Dehydration (principal); R10.9 Unspecified abdominal pain; R30.0 Dysuria; Z98.84 Bariatric surgery status; R80.9 Proteinuria, unspecified; R94.5 Abnormal results of liver function studies; I10 Essential (primary) hypertension; E78.5 Hyperlipidemia, unspecified; K21.9 Gastro-esophageal reflux disease without esophagitis; Z79.899 Other long term (current) drug therapy

== ENCOUNTER → 2022-12-24 | Outpatient (CLI) | payer OTHER ==
[~2022-12-24] MED LIST changes: +CARV12.5; +GABA-282; +GASTROGRAFIN SOLUTION 30ML As Ordered ONE; +ISOVUE-370 76% 100ML VIAL As Ordered ONE; +METH-1164; +OMEP-173; +TRAM50TA2; +URSO300C3
== END ==
LOC: M RAD 12:25
PROVIDERS: ATTEND Physician Assistant
DX: Z98.84 Bariatric surgery status (principal)
CPT/HCPCS: 74177; Q9963; Q9967

== ENCOUNTER 2023-02-04 02:40 | Emergency (ER) | payer OTHER ==
[~2023-02-04] VITALS: Ht 162.6 cm; Wt 140.7 kg
[~2023-02-04 02:40] MED LIST changes: -GASTROGRAFIN SOLUTION 30ML As Ordered ONE; -ISOVUE-370 76% 100ML VIAL As Ordered ONE
[2023-02-04 04:24] LABS: BASO # 0.1 10^3/uL (0.0-0.2); BASO % 0.5 % (0.0-1.0); EOS # 0.4 10^3/uL (0.0-0.5); EOS % 3.6 % (0.0-3.0); HEMOGLOBIN 11.2 g/dl (12.0-15.5); LYMPH % 28.7 % (24.0-44.0); MEAN CORPUSCULAR HEMOGLOBIN 29.6 pg (27.0-33.0); MEAN CORPUSCULAR HGB CONC 31.1 g/dl (32.0-36.5); MEAN CORPUSCULAR VOLUME 95.2 fl (80.0-96.0); MONO # 0.5 10^3/uL (0.0-0.8); MONO % 4.3 % (2.0-8.0); NEUTROPHILS # 6.5 10^3/uL (1.5-8.5); NEUTROPHILS % 62.6 % (36.0-66.0); PLATELET COUNT, AUTOMATED 240 10^3/uL (150-450); RED BLOOD COUNT 3.78 10^6/uL (4.00-5.40); WHITE BLOOD COUNT 10.4 10^3/uL (4.0-10.0)
[2023-02-04 04:46] LABS: LIPASE 18 U/L (12-53)
[2023-02-04 04:47] LABS: CPK CREATINE PHOSPHOKINASE 78 U/L (34-145)
[2023-02-04 04:48] LABS: ALBUMIN 3.4 G/DL (3.2-5.2); ALKALINE PHOSPHATASE 98 U/L (46-116); ALT/SGPT 37 U/L (7.0-40); AST/SGOT 24 U/L (<34); BILIRUBIN,TOTAL 0.7 MG/DL (0.3-1.2); BLOOD UREA NITROGEN 7 MG/DL (9-23); CALCIUM LEVEL 8.5 MG/DL (8.5-10.1); CARBON DIOXIDE LEVEL 28 MMOL/L (20-31); CHLORIDE LEVEL 106 MMOL/L (98-107); CK-MB VALUE MASS < 1.0 NG/ML (<3.6); CREATININE FOR GFR 0.57 MG/DL (0.55-1.30); GLOMERULAR FILTRATION RATE > 60.0 (>60); GLUCOSE, FASTING 85 MG/DL (60-100); MB/CK RELATIVE INDEX 1.28 (< OR =4); POTASSIUM SERUM 3.2 MMOL/L (3.5-5.1); SODIUM LEVEL 141 MMOL/L (136-145); TOTAL PROTEIN 6.3 G/DL (5.7-8.2)
[2023-02-04] MEDS ORDERED: ISOVUE-370 76% 100ML VIAL As Ordered ONE ×2 (05:00→05:17)
[2023-02-04 05:36] LABS: HCG, SERUM QUALITATIVE NEGATIVE (NEGATIVE)
[2023-02-04 07:19] LABS: CK-MB VALUE MASS < 1.0 NG/ML (<3.6)
[2023-02-04 07:20] LABS: CPK CREATINE PHOSPHOKINASE 71 U/L (34-145)
[2023-02-04 07:45] VITALS: BP 126/78
[2023-02-04] MEDS ORDERED: VENTAER INH (07:56)
[2023-02-04] MEDS ORDERED: POTASSIUM CHLORIDE 10MEQ SR TABLET PO ONE (09:00)
== END 2023-02-04 08:05 | disposition home or self-care (01) ==
LOC: M ED 02:40
DX: J98.01 Acute bronchospasm (principal); R07.89 Other chest pain; E87.6 Hypokalemia
CPT/HCPCS: 71275; 80053; 82550; 82553; 83605; 83690; 84484; 84703; 85025; 93005; 93041; 99285; Q9967